=== PATIENT | male | born 1995 ===

== ENCOUNTER 2020-03-22 20:15 | Inpatient (IN) | payer MEDICAID, SELFPAY ==
[2020-03-22 20:16] VITALS: BP 157/91; PULSE 64; RESP 16; TEMP 36.4; O2SAT 98; BMI 40.6
--- NOTE | 2020-03-22 20:22 | ED_ITS ---
HPI - Psych General: Chief Complaint: Psychiatric Symptoms Stated Complaint: Psych Transfer Time Seen by Provider: 03/22/20 20:17 Source: patient and EMS Mode of arrival: EMS Limitations: altered mental status History of Present Illness: HPI Narrative: 24-year-old male who is here from outside facility as a direct admit to the psychiatric unit for suicidal ideations. Patient here seems to be slightly catatonic but will answer some questions and states that he wants to kill himself. He has had no fever or cough. Patient's lab work from outside facility are normal. He has had no known coronavirus contact. Associated symptoms: Reports depression Review of Systems Const: Denies: fever(s), chills, body aches or change in appetite Eyes: Denies: blurry vision or eye discomfort ENMT: Denies: throat pain or dental pain Card: Denies: chest pain Resp: Denies: dyspnea GI: Denies: abdominal pain, nausea, vomiting or diarrhea : Denies: dysuria Musc: Denies: neck pain or back pain Skin/Breast: Denies: rash Neuro: Denies: headache(s) Psych: Reports: depression Crow/Lymph: Denies: easy bruising All/Imm: Denies: urticaria Physical Exam Const: COMMON NORMALS: no acute distress, patient oriented x3 and healthy appearing HENMT: COMMON NORMALS: normocephalic and atraumatic HEAD & SCALP: normocephalic and atraumatic Eye: COMMON NORMALS: Equal, round and reactive pupils present and EOMs intact bilaterally PUPIL: Yes Equal, round and reactive pupils present Neck/C-Spine: COMMON NORMALS: full ROM and supple Chest: COMMONS NORMALS: normal inspection of the chest and normal palpation of entire chest wall Resp: COMMON NORMALS: normal respiratory effort, No retractions, No use of accessory muscles and clear to auscultation bilaterally AUSCULTATION: clear to auscultation bilaterally Cardio: COMMON NORMALS: regular rate, regular rhythm and No murmurs present (Cardio) RATE: regular rate RHYTHM: regular rhythm GI: COMMON NORMALS: Normal to inspection, nondistended, normoactive bowel sounds present, Soft to palpation, non-tender and no masses PALPATION: Yes Soft to palpation Extremity: COMMON NORMALS: normal to inspection and full ROM Neuro: COMMON NORMALS: patient oriented x3, moves all extremities and no focal motor deficits Psych: MOOD & AFFECT: Yes depressed mood THOUGHT CONTENT: Yes Suicidality present Skin: COMMON NORMALS: no rashes or lesions noted and no wounds GENERAL SKIN EXAM: no rashes or lesions noted MDM - Psych MDM Narrative: Medical decision making narrative: Patient presents for suicidal ideation and is a direct admit. Patient has no symptoms of coronavirus. Will admit to the psychiatric unit. Patient's vitals here are stable I did look over paperwork from outside facility and lab work is all normal as well. Discharge Plan Discharge Patient Disposition: Admitted As Inpatient Clinical Impression: Suicidal ideation Condition: Stable Coding Level of Care Code ED Senior Cyber Intelligence Analyst for Dudley Shah
[2020-03-22 20:59] VITALS: BP 135/85; PULSE 86; RESP 16; TEMP 36.4; O2SAT 99
[2020-03-22] MEDS: hyDROXYzine 25 mg Capsule 50 MG PO (21:50)
[2020-03-22] MEDS: trazodone 50 mg Tablet PO (21:50)
[2020-03-22 22:00] VITALS: BP 135/85; PULSE 86; RESP 16; TEMP 36.4; O2SAT 99
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
--- NOTE | 2020-03-23 04:32 | PC.NURSE ---
96 hour hold will need notarized tomorrow 03/23/20.
[2020-03-23 06:00] VITALS: BP 127/78; PULSE 53; RESP 17; TEMP 36.9; O2SAT 97
[2020-03-23] MEDS: haloperidol 5 mg Tablet PO ×2 (09:02→18:08)
[2020-03-23] MEDS: hyDROXYzine 25 mg Capsule 50 MG PO ×2 (09:02→17:57)
[2020-03-23] MEDS: cloZAPine 100 mg Tablet PO (09:02)
[2020-03-23] MEDS: lisinopril 10 mg Tablet PO (09:02)
[2020-03-23] MEDS: benztropine 1 mg Tablet PO ×2 (09:02→17:56)
[2020-03-23] MEDS: topiramate 100 mg Tablet PO (09:02)
[2020-03-23] MEDS: docusate sodium 100 mg Capsule PO ×2 (09:03→17:57)
--- NOTE | 2020-03-23 10:56 | P.HP_ITS ---
Providers/Chief Complaint Admitting Physician: Stephen Ulloa MD Chief Complaint: Psych Transfer HPI NPU History of Present Illness Just send me home. Cachorro Guerrero is a 24 year old male who was transferred on a direct admit from [facility] in [place]. Records indicate that he presented to the emergency room nearly 3 days ago having cut himself on the left forearm. The only information we have at this time is information provided by the hospital. The patient is providing no information this will be described in his mental status exam below. Apparently, he allegedly has a history of schizophrenia and bipolar disorder. He is living in a residential home. He has a history of hearing voices. The injury apparently was superficial. He was referred to psychiatry on the basis of an affidavit filed by Ana Maria Pritchett stating that the patient was having auditory hallucinations telling him to harm himself. The respondent appears to lack insight and judgment and is a danger to himself and potentially others. The respondent's behavior is unpredictable and cannot be managed at a lower level of care at this time. Medical assessment describes him as largely medically stable with a notable notable abnormality of having a urine drug screen positive for amphetamines. The patient presents today in an obtunded state. This is coincident with a medication list that is quite confus ing and overwhelming. We have no active medication list. But we have is a list of prescriptions that have been filled over the past year with no indication as to what is currently active. According to the list, he is to be on 3 different antipsychotic medications and 2 different antidepressants as well as 2 different benzodiazepines. Depending on how medications were reinstated and the accuracy of the list, it would explain his obtunded state at the time of the interview. It is noted that on the physical exam in the emergency room, he is described as alert and oriented appropriate and interactive. Past psychiatric history: Unknown Social history: Patient allegedly is in living in a nursing home. It is unclear whether he has a guardian. Medical history:In the emergency room he was given diagnoses of acute psychosis and intentional self-harm. He has no known drug allergies. He carries diagnoses of hypertension, morbid obesity, and tobacco use. Laboratories are unremarkable. Vital signs are unremarkable. Meds NPU Home Medications Medication Instructions Recorded Confirmed Last Taken Type olanzapine 10 mg PO DAILY 03/22/20 03/22/20 Unknown History Mental Status Exam MSE Comments: The patient is a large male appearing approximately his stated age. He enters the room and sits in the chair in a heavy manner. His eyes are limited and he is barely able to stay awake. He provides the chief complaint above but otherwise is able to provide no other information. After sitting in the chair for approximately 2 minutes, he simply gets up and walks out of the room goes back to his room and lays in bed. He is in no physical distress. He is in no emotional distress. His gait is waddling. There is no attention to internal stimuli. Vitals/I&O/Wt Last Vital Signs Temp 98.5 F 03/23/20 06:00 Pulse 53 L 03/23/20 06:00 Resp 17 03/23/20 06:00 BP 127/78 03/23/20 06:00 Pulse Ox 97 03/23/20 06:00 Weight last 48 hrs Weight 136.078 kg A&P Additional A&P Information Diagnoses Schizophrenia?chronic, undifferentiated Assessment: At this point the only thing that we can do is try and make some sense out of his medications as clearly he has being sedated from what ever he has been given over the past 2 days. Due to the psychiatric conditions and treatment listed in the Assessment and Plan - the patient requires continued hospitalization. Will provide a safe and therapeutic environment for patient.. Will continue inpatient treatment to allow for medication adjustment and monitoring. Will continue q15 min safety checks. Haldol Decanoate 100 mg every 4 weeks will be continued as soon as we can discover when his last injection was provided. Continue lisinopril 10 mg daily, hydroxyzine 50 mg twice daily, prazosin 2 mg at bedtime, trazodone 150 mg as needed. We will then use as needed medications to treat symptomatically. Monitor patient's mood, sleep, appetite, and behavior closely. Encourage patient to participate in individual and group therapeutic sessions on the perez. Estimated length of stay 5 days The expected benefits and potential side effects of patient's psychiatric medications were discussed with the patient. The patient understands and consents to treatment. CRITERIA FOR DISCHARGE: stable on medications and no longer an imminent threat to self or others Attestations NPU Medical Necessity Statement*: Patient will remain in the hospital another 4-5 nights until medication regimen can the establish and stabilize. Coding Level of Care Code Acute Armored Car Guard And Driver for Dudley Shah
[2020-03-23 13:36] VITALS: BP 109/69; PULSE 80; RESP 18; TEMP 36.8
[2020-03-23] MEDS: LORazepam 1 mg Tablet PO (18:08)
--- NOTE | 2020-03-23 18:08 | PC.NURSE ---
PATIENT PUSHING ON DOOR TO THE WAITING AREA, STATING I HAVE TO GET OUT OF HERE, PEOPLE ARE TRYING TO KILL ME. REASSURED PATIENT THAT HE WAS SAFE AND REDIRECTED PATIENT TO DAY ROOM. HALDOL 5MG AND ATIVAN 1MG ADMINISTERED PO. WILL MONITOR FOR DRUG EFFECTIVENESS.
--- NOTE | 2020-03-23 18:58 | PC.NURSE ---
PATIENT RESTING QUIETLY WITH EYES CLOSED. NO DISTRESS NOTED. WILL CONT TO MONITOR, SUPPORT AND REDIRECT NEEDED
[2020-03-23 22:00] VITALS: RESP 17
[2020-03-23] MEDS: divalproex ER 500 mg Tablet (24H) 1000 MG PO (22:05)
[2020-03-23] MEDS: prazosin 1 mg Capsule 2 MG PO (22:05)
[2020-03-23] MEDS: trazodone 100 mg Tablet PO (22:05)
[2020-03-23] MEDS: OLANZapine 10 mg TABLET 15 MG PO (22:06)
[2020-03-24 06:00] VITALS: BP 95/57; PULSE 92; RESP 15; TEMP 36.6; O2SAT 95
--- NOTE | 2020-03-24 06:35 | PC.NURSE ---
Patient to sedated.
[2020-03-24] MEDS: benztropine 1 mg Tablet PO ×2 (08:23→17:27)
[2020-03-24] MEDS: hyDROXYzine 25 mg Capsule 50 MG PO ×2 (08:23→17:27)
[2020-03-24] MEDS: docusate sodium 100 mg Capsule PO ×2 (08:23→17:27)
[2020-03-24] MEDS: lisinopril 10 mg Tablet PO (08:23)
[2020-03-24] MEDS: fluoxetine 20 mg Capsule PO (08:23)
[2020-03-24 13:13] VITALS: BP 92/57; PULSE 54; RESP 14; TEMP 36.7; O2SAT 95
[2020-03-24] MEDS: haloperidol 5 mg Tablet PO (16:04)
--- NOTE | 2020-03-24 16:04 | PC.NURSE ---
PRN Haldol 5mg PO Haldol given. Patient sitting in his shower, screaming at the voices to shut the hell up . Patient talking to himself and refusing to leave shower. Patient stated I already have five people in my head and there's no room for more . Patient cussing and screaming. This nurse attempt to calm patient and see what is going on. Patient stated the meds don't work. Patient did agree however, to take Haldol and see if that helped with the acute psychosis. Patient stayed in shower floor for about 5 minutes after Haldol given and then patient got up and continued to walk the halls.
--- NOTE | 2020-03-24 16:47 | PC.NURSE ---
STANDING ON TABLE YUNI Washington performing [id number] check when going to men's dayroom. This nurse heard Padmini cordoba for help in the dayroom. This nurse and JW Valencia came into dayroom and patient was standing on top of one of the tables and refusing to come down. Patient stated this is my mormonism . Patient instructed to come down due to safety measures. Patient finally decided to come down from table after persuasion by nursing staff. No injuries obtained by patient or staff. YUNI Washington stayed with patient for a while after that to be sure of safety. Physician notified.
[2020-03-24] MEDS: LORazepam 1 mg Tablet PO (18:09)
[2020-03-24] MEDS: acetaminophen 325 mg Tablet 650 MG PO (18:09)
--- NOTE | 2020-03-24 18:09 | PM.NPN ---
Subjective NPU Subjective: Interval history: The patient has acted out bizarre ideation, endangering himself by banging his head against the wall. He can talk to me coherently but he says the voices bother him a great deal. He says that olanzapine has been helpful with these voices. He has been on Geodon and Latuda as well as others, no doubt, and he says they haven't helped. He is currently at 15 mg Perdiem of olanzapine but I'm titrating him to the max at 20 mg Perdiem. Medications: Reviewed: Yes Medication Review Details: Current Medications Acetaminophen (Tylenol) 650 mg PO Q4H PRN PRN Reason: MILD PAIN Last Admin: 03/24/20 18:09 Dose: 650 mg Documented by: Benztropine Mesylate (Cogentin) 1 mg PO BID PRN PRN Reason: Mild Extrapyramidal symptoms Benztropine Mesylate (Cogentin) 1 mg PO BID [facility] Last Admin: 03/24/20 17:27 Dose: 1 mg Documented by: Camphor/Menthol/Phenol (Blistex) 1 applic TOPICAL Q1H PRN PRN Reason: DRYNESS Diphenhydramine HCl (Benadryl) 50 mg IM ONCE PRN PRN Reason: Severe Extrapyramidal Symptoms Diphenhydramine HCl (Benadryl) 25 mg PO Q6H PRN PRN Reason: ITCHING Divalproex Sodium (Depakote Er) 1,000 mg PO BEDTIME [facility] Last Admin: 03/23/20 22:05 Dose: 1,000 mg Documented by: Docusate Sodium (Colace) 100 mg PO BID [facility] Last Admin: 03/24/20 17:27 Dose: 100 mg Documented by: Fluoxetine HCl (Prozac) 20 mg PO DAILY [facility] Last Admin: 03/24/20 08:23 Dose: 20 mg Documented by: Haloperidol (Haldol) 5 mg PO Q4H PRN PRN Reason: AGITATION Last Admin: 03/24/20 16:04 Dose: 5 mg Documented by: Haloperidol Lactate (Haldol Inj) 5 mg IM Q4H PRN PRN Reason: Severe Aggression Hydroxyzine Pamoate (Vistaril) 50 mg PO Q6H PRN PRN Reason: ANXIETY Last Admin: 10/02/20 21:50 Dose: 50 mg Documented by: Hydroxyzine Pamoate (Vistaril) 50 mg PO BID [facility] Last Admin: 03/24/20 17:27 Dose: 50 mg Documented by: Lisinopril (Prinivil) 10 mg PO DAILY [facility] Last Admin: 03/24/20 08:23 Dose: 10 mg Documented by: Loperamide HCl (Imodium Capsule) 2 mg PO Q6H PRN PRN Reason: DIARRHEA Lorazepam (Ativan) 2 mg IM Q4H PRN PRN Reason: Severe Aggression Lorazepam (Ativan) 1 mg PO Q6H PRN PRN Reason: ANXIETY Last Admin: 03/24/20 18:09 Dose: 1 mg Documented by: Nicotine (Nicoderm 21 Mg Patch) 1 patch TRANSDERMA DAILY PRN PRN Reason: NICOTINE WITHDRAWAL Nicotine Polacrilex (Nicorette) 2 mg BUCCAL Q2H PRN PRN Reason: NICOTINE WITHDRAWAL Olanzapine (Zyprexa) 20 mg PO BEDTIME [facility] Ondansetron HCl (Zofran) 4 mg PO Q6H PRN PRN Reason: NAUSEA AND VOMITING Prazosin HCl (Minipress) 2 mg PO BEDTIME [facility] Last Admin: 03/23/20 22:05 Dose: 2 mg Documented by: Trazodone HCl (Desyrel) 100 mg PO BEDTIME [facility] Last Admin: 03/23/20 22:05 Dose: 100 mg Documented by: Mental Status Exam MSE Comments: The patient is lying calmly now in his bed. He is very anxious and holding an ice bag to his forehead. He understands that his head-banging may damage his brain. He says he wants to go to a long-term facility. Affect is blunt. Thought processes are limited right now but do not seem to be disorganized, blocked or racing. Speech is very soft but free of dysarthria, aprosody or pressure. Cognitive functions are probably subnormal. He denies suicidal or homicidal ideation, plan or intent. Insight and judgment are definitely impaired. 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 He is presently at 15 mg olanzapine daily. I'm titrating it to the max (20 mg by mouth daily). Status: Acute Attestations NPU Medical Necessity Statement*: I anticipate 5-7 midnights additional hospital stay. Time Spent in Patient Care: Greater than 35 minutes (>than 50% of time spent in counselling and/or direct pt care on unit). 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
--- NOTE | 2020-03-24 18:32 | PC.NURSE ---
PRN ATIVAN AND TYLENOL, SELF HARM Patient began slamming his head against wall near nurse's station. This nurse and YUNI Washington, as well as security went to stop patient and assess him. Guided patient back to his room to sit down. This nurse assessed for injuries. Patient was bleeding from forehead, small knot noted, red in color. Patient stated it was not hurting. Patient stated he was doing this to try to get rid of the voices. This nurse asked if the next time the voices got too overwhelming that he would come to this nurse and ask for help. Reinforcement needed. Tylenol given to prevent/reduce swelling. Ativan given for agitation and aggressive behavior to himself. Ice pack given for patient's head. Physician made aware and came to patient's room to assess him further. Medication adjustments made by physician. One-to-one sitter order received and begun.
[2020-03-24] MEDS: prazosin 1 mg Capsule 2 MG PO (20:30)
[2020-03-24] MEDS: divalproex ER 500 mg Tablet (24H) 1000 MG PO (20:30)
[2020-03-24] MEDS: OLANZapine 10 mg TABLET 20 MG PO (20:30)
[2020-03-24] MEDS: trazodone 100 mg Tablet PO (20:31)
[2020-03-24 21:13] VITALS: BP 99/60; PULSE 49; RESP 16; TEMP 36.7; O2SAT 97
[2020-03-25 06:00] VITALS: BP 96/61; PULSE 44; RESP 15; TEMP 36.5; O2SAT 95
[2020-03-25] MEDS: lisinopril 10 mg Tablet PO (11:06)
[2020-03-25] MEDS: hyDROXYzine 25 mg Capsule 50 MG PO ×2 (11:07→17:11)
[2020-03-25] MEDS: fluoxetine 20 mg Capsule PO (11:07)
[2020-03-25] MEDS: docusate sodium 100 mg Capsule PO ×2 (11:07→17:11)
[2020-03-25] MEDS: benztropine 1 mg Tablet PO ×2 (11:07→17:11)
[2020-03-25] MEDS: haloperidol 5 mg Tablet PO ×2 (11:56→17:11)
[2020-03-25] MEDS: LORazepam 1 mg Tablet PO (13:25)
[2020-03-25] MEDS: acetaminophen 325 mg Tablet 650 MG PO (13:25)
--- NOTE | 2020-03-25 13:46 | PC.NURSE ---
SELF HARM AND REFUSAL OF MEDS Patient beating his head against wall near nurse's station again today. Patient instructed to stop behavior and that this behavior is unsafe and not acceptable. Patient walked back to his room and assessed for injuries. Patient's forehead has two open cuts that are bloody and the spot is swelled and very red in color. Patient denies pain and denies need for anything. Patient informed the swelling will get worse and it will become sore. Patient given Haldol couple hours ago. Patient refusing to take Tylenol for head and Ativan for anxiety. Education provided on the need for these medications and that he can not harm himself or others. Reinforcement needed and will be done. Physician aware. One-to-one sitter order placed again. supervisor electronics processing aware and called for sitter. YUNI Washington will be sitting 1:1 until sitter arrives.
[2020-03-25 14:00] VITALS: BP 101/64; PULSE 51; RESP 18; TEMP 36.9; O2SAT 97
--- NOTE | 2020-03-25 15:26 | PM.NPN ---
Subjective NPU Subjective: Interval history: The patient now is at olanzapine 10 mg p.o. twice daily and has, in the last 2 days, received an injection of 5 mg Haldol IM each day. I have reviewed the [employer] online Library and there is a large amount of [employer] literature related to auditory hallucinations. They use combined antipsychotics such as Haldol plus olanzapine, taken with tiapride, which is not available in the [place] that I know of. I consulted with the hospital pharmacist to get his reaction to combining Haldol with olanzapine, titrating the former to the max divided doses. He says the maximum doses on each of these is FDA approved and he sees no overriding objection. I pointed out that this man is a big shanice who really hammers his head when he tries to get voices out of his head. I truly believe he could hurt himself significantly and I hope to avoid this. He agreed with the relative risk assessment. Medications: Reviewed: Yes Medication Review Details: Current Medications Acetaminophen (Tylenol) 650 mg PO Q4H PRN PRN Reason: MILD PAIN Last Admin: 03/24/20 18:09 Dose: 650 mg Documented by: Benztropine Mesylate (Cogentin) 1 mg PO BID PRN PRN Reason: Mild Extrapyramidal symptoms Benztropine Mesylate (Cogentin) 1 mg PO BID [facility] Last Admin: 03/25/20 11:07 Dose: 1 mg Documented by: Camphor/Menthol/Phenol (Blistex) 1 applic TOPICAL Q1H PRN PRN Reason: DRYNESS Diphenhydramine HCl (Benadryl) 50 mg IM ONCE PRN PRN Reason: Severe Extrapyramidal Symptoms Diphenhydramine HCl (Benadryl) 25 mg PO Q6H PRN PRN Reason: ITCHING Divalproex Sodium (Depakote Er) 1,000 mg PO BEDTIME [facility] Last Admin: 03/24/20 20:30 Dose: 1,000 mg Documented by: Docusate Sodium (Colace) 100 mg PO BID [facility] Last Admin: 03/25/20 11:07 Dose: 100 mg Documented by: Fluoxetine HCl (Prozac) 20 mg PO DAILY [facility] Last Admin: 03/25/20 11:07 Dose: 20 mg Documented by: Haloperidol (Haldol) 5 mg PO Q4H PRN PRN Reason: AGITATION Last Admin: 03/25/20 11:56 Dose: 5 mg Documented by: Haloperidol (Haldol) 10 mg PO DAILY [facility] Haloperidol Lactate (Haldol Inj) 5 mg IM Q4H PRN PRN Reason: Severe Aggression Hydroxyzine Pamoate (Vistaril) 50 mg PO Q6H PRN PRN Reason: ANXIETY Last Admin: 03/22/20 21:50 Dose: 50 mg Documented by: Hydroxyzine Pamoate (Vistaril) 50 mg PO BID [facility] Last Admin: 03/25/20 11:07 Dose: 50 mg Documented by: Lisinopril (Prinivil) 10 mg PO DAILY [facility] Last Admin: 03/25/20 11:06 Dose: 10 mg Documented by: Loperamide HCl (Imodium Capsule) 2 mg PO Q6H PRN PRN Reason: DIARRHEA Lorazepam (Ativan) 2 mg IM Q4H PRN PRN Reason: Severe Aggression Lorazepam (Ativan) 1 mg PO Q6H PRN PRN Reason: ANXIETY Last Admin: 03/24/20 18:09 Dose: 1 mg Documented by: Nicotine (Nicoderm 21 Mg Patch) 1 patch TRANSDERMA DAILY PRN PRN Reason: NICOTINE WITHDRAWAL Nicotine Polacrilex (Nicorette) 2 mg BUCCAL Q2H PRN PRN Reason: NICOTINE WITHDRAWAL Olanzapine (Zyprexa) 10 mg PO BID [facility] Ondansetron HCl (Zofran) 4 mg PO Q6H PRN PRN Reason: NAUSEA AND VOMITING Prazosin HCl (Minipress) 2 mg PO BEDTIME [facility] Last Admin: 03/24/20 20:30 Dose: 2 mg Documented by: Trazodone HCl (Desyrel) 100 mg PO BEDTIME [facility] Last Admin: 03/24/20 20:31 Dose: 100 mg Documented by: Mental Status Exam MSE Comments: The patient is lying calmly now in his bed. He is very anxious and. He understands that his head-banging may damage his brain. He says he wants to go to a long-term facility. Affect is blunt. Thought processes are limited right now but do not seem to be disorganized, blocked or racing. Speech is very soft but free of dysarthria, aprosody or pressure. Cognitive functions are probably subnormal. He denies suicidal or homicidal ideation, plan or intent. Insight and judgment are definitely impaired. He suffers greatly. 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 Time Spent in Patient Care: Greater than 35 minutes (>than 50% of time spent in counselling and/or direct pt care on unit). 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
[2020-03-25] MEDS: OLANZapine 10 mg TABLET PO (17:11)
[2020-03-25] MEDS: prazosin 1 mg Capsule 2 MG PO (19:18)
[2020-03-25] MEDS: trazodone 100 mg Tablet PO (19:18)
[2020-03-25] MEDS: divalproex ER 500 mg Tablet (24H) 1000 MG PO (19:18)
[2020-03-25 19:44] VITALS: BP 135/60; PULSE 72; RESP 17; TEMP 36.9; O2SAT 96
[2020-03-26 05:58] VITALS: BP 99/64; PULSE 84; RESP 16; TEMP 36.8; O2SAT 96
[2020-03-26] MEDS: haloperidol 5 mg Tablet 10 MG PO (07:51)
[2020-03-26] MEDS: OLANZapine 10 mg TABLET PO ×2 (07:52→16:49)
[2020-03-26] MEDS: lisinopril 10 mg Tablet PO (07:52)
[2020-03-26] MEDS: benztropine 1 mg Tablet PO ×2 (07:52→16:49)
[2020-03-26] MEDS: docusate sodium 100 mg Capsule PO ×2 (07:52→16:49)
[2020-03-26] MEDS: fluoxetine 20 mg Capsule PO (07:53)
[2020-03-26] MEDS: hyDROXYzine 25 mg Capsule 50 MG PO ×2 (07:53→16:49)
--- NOTE | 2020-03-26 11:33 | PM.NPN ---
Subjective NPU Subjective: Interval history: The patient, since augmentation of maximum (20 mg p.o. daily) olanzapine pharmacotherapy with haloperidol titration to 10 mg p.o. daily, has yielded an interesting response. The patient has fallen asleep and has been asleep for a LONG time. I have seen this before and it is a possible harbinger of improvement. The Soviets knew this decades ago and would often put acutely psychotic patients to sleep. We will see what he looks like when he wakes up. Medications: Reviewed: Yes Medication Review Details: Current Medications Acetaminophen (Tylenol) 650 mg PO Q4H PRN PRN Reason: MILD PAIN Last Admin: 03/24/20 18:09 Dose: 650 mg Documented by: Benztropine Mesylate (Cogentin) 1 mg PO BID PRN PRN Reason: Mild Extrapyramidal symptoms Benztropine Mesylate (Cogentin) 1 mg PO BID [facility] Last Admin: 03/26/20 07:52 Dose: 1 mg Documented by: Camphor/Menthol/Phenol (Blistex) 1 applic TOPICAL Q1H PRN PRN Reason: DRYNESS Diphenhydramine HCl (Benadryl) 50 mg IM ONCE PRN PRN Reason: Severe Extrapyramidal Symptoms Diphenhydramine HCl (Benadryl) 25 mg PO Q6H PRN PRN Reason: ITCHING Divalproex Sodium (Depakote Er) 1,000 mg PO BEDTIME [facility] Last Admin: 03/25/20 19:18 Dose: 1,000 mg Documented by: Docusate Sodium (Colace) 100 mg PO BID [facility] Last Admin: 03/26/20 07:52 Dose: 100 mg Documented by: Fluoxetine HCl (Prozac) 20 mg PO DAILY [facility] Last Admin: 03/26/20 07:53 Dose: 20 mg Documented by: Haloperidol (Haldol) 5 mg PO Q4H PRN PRN Reason: AGITATION Last Admin: 03/25/20 11:56 Dose: 5 mg Documented by: Haloperidol (Haldol) 10 mg PO DAILY [facility] Last Admin: 03/26/20 07:51 Dose: 10 mg Documented by: Haloperidol Lactate (Haldol Inj) 5 mg IM Q4H PRN PRN Reason: Severe Aggression Hydroxyzine Pamoate (Vistaril) 50 mg PO Q6H PRN PRN Reason: ANXIETY Last Admin: 03/22/20 21:50 Dose: 50 mg Documented by: Hydroxyzine Pamoate (Vistaril) 50 mg PO BID [facility] Last Admin: 03/26/20 07:53 Dose: 50 mg Documented by: Lisinopril (Prinivil) 10 mg PO DAILY [facility] Last Admin: 03/26/20 07:52 Dose: 10 mg Documented by: Loperamide HCl (Imodium Capsule) 2 mg PO Q6H PRN PRN Reason: DIARRHEA Lorazepam (Ativan) 2 mg IM Q4H PRN PRN Reason: Severe Aggression Lorazepam (Ativan) 1 mg PO Q6H PRN PRN Reason: ANXIETY Last Admin: 03/24/20 18:09 Dose: 1 mg Documented by: Nicotine (Nicoderm 21 Mg Patch) 1 patch TRANSDERMA DAILY PRN PRN Reason: NICOTINE WITHDRAWAL Nicotine Polacrilex (Nicorette) 2 mg BUCCAL Q2H PRN PRN Reason: NICOTINE WITHDRAWAL Olanzapine (Zyprexa) 10 mg PO BID [facility] Last Admin: 03/26/20 07:52 Dose: 10 mg Documented by: Ondansetron HCl (Zofran) 4 mg PO Q6H PRN PRN Reason: NAUSEA AND VOMITING Prazosin HCl (Minipress) 2 mg PO BEDTIME [facility] Last Admin: 03/25/20 19:18 Dose: 2 mg Documented by: Trazodone HCl (Desyrel) 100 mg PO BEDTIME [facility] Last Admin: 03/25/20 19:18 Dose: 100 mg Documented by: Mental Status Exam MSE Comments: The patient is sleeping now. When he has been awake off and on there is been no head banging. A formal mental status is impractical at the moment but we will see what happens. 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 Status: Acute (2) Suicidal ideation: See above Status: Chronic (3) Substance abuse: We got a call from the facility whence the patient came, reporting the discovery of a spoon with a burnt substance in it under the patient's bed. The possibility is that he has been abusing meth, which may have contributed to his environmentally induced psychosis. We will have to further assess and possibly refer for outpatient recovery services. Status: Suspected Attestations NPU Medical Necessity Statement*: I anticipate 5-7 midnights additional stay. 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
--- NOTE | 2020-03-26 13:45 | NPU.GN ---
Cachorro and Crispin both came in later in the group session. Cachorro appeared very down and looked at his feet for the 5-7 minutes he was in attendance. When asked something that he's grateful for, he couldn't think of anything. However, he stated that he can always turn to his friends when he needs support.
[2020-03-26 14:00] VITALS: RESP 18; TEMP 36.8
--- NOTE | 2020-03-26 17:53 | PC.NURSE ---
Hitting wall on head Patient was hitting head on wall near nurses station, this nurse and Chelsea. Bhatt PROMOTIONS EXECUTIVE quickly went to patient, before staff were at his side he had already stopped hitting his head. This nurse asked patient why he was hitting his head on wall and he said he was trying to stop the voices in his head that were telling him to kill himself. Patient reopened small wound on medial forehead. CATRACHO Moreau cleansed and covered with a telfa. PRN Tylenol offered for discomfort. Patient refused. Patient is calm at this time.
--- NOTE | 2020-03-26 20:06 | PC.NURSE ---
Patient is in his bed resting calmly. He refused a snack and has not been out of bed except to use the bathroom. He is withdrawn but answers questions. He avoids eye contact and does not like to be touched.
[2020-03-26 22:00] VITALS: BP 114/71; PULSE 85; RESP 16; TEMP 36.7; O2SAT 93
[2020-03-26] MEDS: haloperidol 5 mg Tablet PO (22:00)
[2020-03-26] MEDS: prazosin 1 mg Capsule 2 MG PO (22:00)
[2020-03-26] MEDS: divalproex ER 500 mg Tablet (24H) 1000 MG PO (22:00)
[2020-03-26] MEDS: trazodone 100 mg Tablet PO (22:00)
[2020-03-27 05:47] VITALS: BP 105/68; PULSE 56; RESP 16; TEMP 36.7; O2SAT 96
--- NOTE | 2020-03-27 07:23 | PM.NPN ---
Subjective NPU Subjective: Interval history: The patient has been less agitated and banged his head only once and was easily redirected from that. Nonetheless, our intervention is inadequate and I have pushed harder, increasing the haloperidol to 5 mg p.o. 3 times daily. Medications: Medication Review Details: Current Medications Acetaminophen (Tylenol) 650 mg PO Q4H PRN PRN Reason: MILD PAIN Last Admin: 03/24/20 18:09 Dose: 650 mg Documented by: Benztropine Mesylate (Cogentin) 1 mg PO BID PRN PRN Reason: Mild Extrapyramidal symptoms Benztropine Mesylate (Cogentin) 1 mg PO BID [facility] Last Admin: 03/26/20 16:49 Dose: 1 mg Documented by: Camphor/Menthol/Phenol (Blistex) 1 applic TOPICAL Q1H PRN PRN Reason: DRYNESS Diphenhydramine HCl (Benadryl) 50 mg IM ONCE PRN PRN Reason: Severe Extrapyramidal Symptoms Diphenhydramine HCl (Benadryl) 25 mg PO Q6H PRN PRN Reason: ITCHING Divalproex Sodium (Depakote Er) 1,000 mg PO BEDTIME [facility] Last Admin: 03/26/20 22:00 Dose: 1,000 mg Documented by: Docusate Sodium (Colace) 100 mg PO BID [facility] Last Admin: 03/26/20 16:49 Dose: 100 mg Documented by: Fluoxetine HCl (Prozac) 20 mg PO DAILY [facility] Last Admin: 03/26/20 07:53 Dose: 20 mg Documented by: Haloperidol (Haldol) 5 mg PO Q4H PRN PRN Reason: AGITATION Last Admin: 03/25/20 11:56 Dose: 5 mg Documented by: Haloperidol (Haldol) 5 mg PO TID [facility] Last Admin: 03/26/20 22:00 Dose: 5 mg Documented by: Haloperidol Lactate (Haldol Inj) 5 mg IM Q4H PRN PRN Reason: Severe Aggression Hydroxyzine Pamoate (Vistaril) 50 mg PO Q6H PRN PRN Reason: ANXIETY Last Admin: 03/22/20 21:50 Dose: 50 mg Documented by: Hydroxyzine Pamoate (Vistaril) 50 mg PO BID [facility] Last Admin: 03/26/20 16:49 Dose: 50 mg Documented by: Lisinopril (Prinivil) 10 mg PO DAILY [facility] Last Admin: 03/26/20 07:52 Dose: 10 mg Documented by: Loperamide HCl (Imodium Capsule) 2 mg PO Q6H PRN PRN Reason: DIARRHEA Lorazepam (Ativan) 2 mg IM Q4H PRN PRN Reason: Severe Aggression Lorazepam (Ativan) 1 mg PO Q6H PRN PRN Reason: ANXIETY Stop: 04/01/20 23:59 Nicotine (Nicoderm 21 Mg Patch) 1 patch TRANSDERMA DAILY PRN PRN Reason: NICOTINE WITHDRAWAL Nicotine Polacrilex (Nicorette) 2 mg BUCCAL Q2H PRN PRN Reason: NICOTINE WITHDRAWAL Olanzapine (Zyprexa) 10 mg PO BID [facility] Last Admin: 03/26/20 16:49 Dose: 10 mg Documented by: Ondansetron HCl (Zofran) 4 mg PO Q6H PRN PRN Reason: NAUSEA AND VOMITING Prazosin HCl (Minipress) 2 mg PO BEDTIME [facility] Last Admin: 03/26/20 22:00 Dose: 2 mg Documented by: Trazodone HCl (Desyrel) 100 mg PO BEDTIME [facility] Last Admin: 03/26/20 22:00 Dose: 100 mg Documented by: Mental Status Exam MSE Comments: Today the patient is soft-spoken. He is not agitated. He is a very large young man who presents at his stated age. He is clean and well kempt. Mood is dysphoric and affect is flat. He complains of loud voices but now says he has no impulse to bang his head. I would not rely on that, as he said that yesterday and proceeded to bang his head. Thought processes are integrated and free of racing, blocking or looseness of association. He continues to complain of loud auditory hallucinations. There are, however, no hallucinations, delusions or visual hallucinations. There are no ideas of reference. Cognitive functions are limited and insight and judgment as well. He denies suicidal or homicidal ideation, plan or intent. 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 Status: Acute (2) Substance abuse: Rehab resources will ultimately be made available. Status: Suspected Attestations NPU Medical Necessity Statement*: I anticipate 5-7 midnights Time Spent in Patient Care: 16 - 35 minutes (>than 50% of time spent in counselling and/or direct pt care on unit). 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
[2020-03-27] MEDS: OLANZapine 10 mg TABLET PO ×2 (08:53→19:35)
[2020-03-27] MEDS: lisinopril 10 mg Tablet PO (08:53)
[2020-03-27] MEDS: benztropine 1 mg Tablet PO ×2 (08:53→20:35)
[2020-03-27] MEDS: haloperidol 5 mg Tablet PO ×3 (08:53→20:35)
[2020-03-27] MEDS: docusate sodium 100 mg Capsule PO ×2 (08:53→20:35)
[2020-03-27] MEDS: hyDROXYzine 25 mg Capsule 50 MG PO ×2 (08:54→19:34)
[2020-03-27] MEDS: fluoxetine 20 mg Capsule PO (08:54)
--- NOTE | 2020-03-27 12:58 | PC.SOCIAL ---
patient's mom called. Her name is Fadumo Guerrero. [phone]. She provided the following information. * patient has had 2 other RCF placements that did not work out. patient's current RCF is not working out. she mentioned that the current home has drug houses near by. * was at [facility] for 3 weeks before coming to this hospital. he had about a week between hospitalizations. *was at another hospital before that. He spent 2 weeks in the Emergency Room waiting to get into a hospital. *when he was first placed in a RCF his roommate killed himself. *mom is considering guardianship but was hopeful that the state would do it. *mom called back later saying that she will proceed with with looking into getting guardianship started.
--- NOTE | 2020-03-27 13:32 | NPU.GN ---
Cheli Layne Lisa, Kelly, Michael, and Mathew were not present at Group this afternoon.
[2020-03-27 14:00] VITALS: BP 105/68; PULSE 56; RESP 16; TEMP 36.7; O2SAT 96
[2020-03-27] MEDS: nicotine 2 mg Gum BUCCAL ×2 (16:22→18:43)
[2020-03-27] MEDS: divalproex ER 500 mg Tablet (24H) 1000 MG PO (20:35)
[2020-03-27] MEDS: prazosin 1 mg Capsule 2 MG PO (20:35)
[2020-03-27] MEDS: trazodone 100 mg Tablet PO (20:35)
[2020-03-27 20:39] VITALS: RESP 18
--- NOTE | 2020-03-27 20:39 | PC.NURSE ---
Patient refused vitals and asked staff to leave the room stating Now isnt a good time. Respirations were taken.
--- NOTE | 2020-03-27 23:14 | PC.NURSE ---
Addendum entered by Patricia Maldonado RN 03/28/20 04:50: Pt has slept well this evening with a decrease in anxiety Original Note: Pt has been agitated, yelling, throwing things in his room. He was shouting and cursing. Slammed his door and wanted to keep it closed. He refused medication to calm down. He paced the genao and mood began to escalate. donor relations officer Jonathan was called to the unit and patient did take medication after much discussion. Patient received all nightly medications and was given PRN visteril 50mg PO. Will continue to monitor patient
[2020-03-28 06:00] VITALS: BP 126/92; PULSE 68; RESP 17; TEMP 36.8; O2SAT 93
[2020-03-28] MEDS: lisinopril 10 mg Tablet PO (09:20)
[2020-03-28] MEDS: OLANZapine 10 mg TABLET PO ×2 (09:20→21:37)
[2020-03-28] MEDS: fluoxetine 20 mg Capsule PO (09:20)
[2020-03-28] MEDS: hyDROXYzine 25 mg Capsule 50 MG PO ×2 (09:20→21:33)
[2020-03-28] MEDS: benztropine 1 mg Tablet PO ×2 (09:20→21:34)
[2020-03-28] MEDS: docusate sodium 100 mg Capsule PO ×2 (09:20→21:33)
[2020-03-28] MEDS: haloperidol 5 mg Tablet PO ×3 (09:20→21:34)
[2020-03-28 14:00] VITALS: BP 125/82; PULSE 65; RESP 18; TEMP 37.1; O2SAT 95
--- NOTE | 2020-03-28 16:01 | PM.NPN ---
Subjective NPU Subjective: Interval history: Cachorro presents today reporting that he is doing better. He was really really hoping to get discharged today because his birthday is tomorrow. However we discussed the possibility of discharge tomorrow. That seems to be reasonable for him until he got news that he might not see his mom tomorrow. However we discussed the importance of him holding it together so that we can feel comfortable discharging him and he was able to collect himself. He denied any side effects of the medications. Mental Status Exam MSE Comments: This is an obese versus morbidly obese male with adequate dress, grooming and eye contact. No abnormal movements except for psychomotor retardation. Cooperative with exam in no acute distress. Speech was decreased rate and volume with some dysarthria. Mood described as ready to go, affect slightly irritated. Thought process linear. Thought content: Patient denied any suicidal or homicidal ideations, there were no delusions reported or noted, he denied any auditory or visual hallucinations. Attention and concentration were intact in memory appeared reliable but none were formally tested. He is alert and oriented x3. Insight and judgment are limited, and all trouble is fair. Intellectual ability is impaired. 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 1. Continue current medication. 2. Continue every 15 minute checks for safety. 3. Encourage individual, group and milieu therapy. 4. Work with social work team for tentative discharge tomorrow. Attestations NPU Medical Necessity Statement*: Patient hospitalization is medically necessary and the clinically appropriate intervention at this time. We will monitor medications make changes as indicated. Tentative plan for discharge tomorrow. 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
[2020-03-28] MEDS: divalproex ER 500 mg Tablet (24H) 1000 MG PO (21:33)
[2020-03-28] MEDS: prazosin 1 mg Capsule 2 MG PO (21:34)
[2020-03-28] MEDS: trazodone 100 mg Tablet PO (21:34)
[2020-03-28] MEDS: nicotine 2 mg Gum BUCCAL (21:34)
[2020-03-28] MEDS: acetaminophen 325 mg Tablet 650 MG PO (21:36)
[2020-03-28 22:00] VITALS: BP 116/75; PULSE 71; RESP 18; TEMP 36.6; O2SAT 95
--- NOTE | 2020-03-29 04:41 | P.DS_ITS ---
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 Cachorro Guerrero is a 24 year old male who was transferred on a direct admit from [facility] in [place]. Records indicate that he presented to the emergency room nearly 3 days ago having cut himself on the left forearm. The only information we have at this time is information provided by the hospital. The patient is providing no information this will be described in his mental status exam below. Apparently, he allegedly has a history of schizophrenia and bipolar disorder. He is living in a residential home. He has a history of hearing voices. The injury apparently was superficial. He was referred to psychiatry on the basis of an affidavit filed by Ana Maria Pritchett stating that the patient was having auditory hallucinations telling him to harm himself. The respondent appears to lack insight and judgment and is a danger to himself and potentially others. The respondent's behavior is unpredictable and cannot be managed at a lower level of care at this time. Medical assessment describes him as largely medically stable with a notable notable abnormality of having a urine drug screen positive for amphetamines. The patient presents today in an obtunded state. This is coincident with a medication list that is quite confusing and overwhelming. We have no active medication list. But we have is a list of prescriptions that have been filled over the past year with no indication as to what is currently active. According to the list, he is to be on 3 different antipsychotic medications and 2 different antidepressants as well as 2 different benzodiazepines. Depending on how medications were reinstated and the accuracy of the list, it would explain his obtunded state at the time of the interview. It is noted that on the physical exam in the emergency room, he is described as alert and oriented appropriate and interactive. Past psychiatric history: Unknown Social history: Patient allegedly is in living in a mcfp. It is unclear whether he has a guardian. Medical history:In the emergency room he was given diagnoses of acute psychosis and intentional self-harm. He has no known drug allergies. He carries diagnoses of hypertension, morbid obesity, and tobacco use. Laboratories are unremarkable. Vital signs are unremarkable. Hospital Course Hospital Course Day #2 the patient's voices drive him to harm self damaging behavior. His psychosis has heretofore not responded to pharmacotherapy. Day #3 the patient is still tortured by his voices and consultation has yielded more aggressive pharmacotherapy. We shall see. Day #4 the patient is quite somnolent on haloperidol 10 mg and olanzapine 20 mg p.o. daily. We may have to back off but right now he needs to rest his brain. Day #5 the patient is subdued and continues to complain of auditory hallucinations in the face of aggressive pharmacotherapy. He has, however, a large body mass and our dosing, even at the FDA maximum recommended doses, may be insufficient. Cachorro presented to an outside hospital with issues related to his mcfp and self-injurious behaviors with long-term diagnosis of intellectual disability and impulse control disorders. He was transferred to [facility] and evaluated prior to being admitted to the neuropsychiatric unit for definitive treatment of those issues. On the unit he slowly acclimated to the individual, group and milieu therapies provided. Medication changes are made as stated above. And he had a modest improvement and stabilized. Prior to transfer he had routine laboratory studies which were within normal limits except for few outliers. Additionally had a general medical evaluation which was also within normal limits and revealed no new acute processes outside of the cuts. Discharge Summary At the time of discharge, without pathology and psychosis. His mood and anxiety were better managed and he endorsed a plan to follow-up with the treatment team's recommendations. He was evaluated and deemed to be absent credible lethality and had achieved a maximum benefit from inpatient hospitalization, so he was discharged. Mental Status Exam MSE Comments: This is an obese versus morbidly obese male with adequate dress, grooming and eye contact. No abnormal movements except for psychomotor retardation. Cooperative with exam in no acute distress. Speech was decreased rate and volume with some dysarthria. Mood described as better, affect slightly irritated. Thought process linear. Thought content: Patient denied any s uicidal or homicidal ideations, there were no delusions reported or noted, he denied any auditory or visual hallucinations. Attention and concentration were intact in memory appeared reliable but none were formally tested. He is alert and oriented x3. Insight and judgment are limited, but improving, and impulse control is fair. Intellectual ability is impaired. Discharge Data Vitals: Last Vital Signs Temp 97.9 F 03/28/20 22:00 Pulse 71 03/28/20 22:00 Resp 18 03/28/20 22:00 BP 116/75 03/28/20 22:00 Pulse Ox 95 03/28/20 22:00 Discharge Plan Discharge Patient Disposition: Home Condition: Stable Prescriptions: New haloperidol 5 mg Tablet 5 mg PO TID 30 Days Qty: 90 RF: 1 prazosin 1 mg Capsule 2 mg PO BEDTIME 30 Days Qty: 60 RF: 1 olanzapine 10 mg Tablet 10 mg PO 00,2099 30 Days Qty: 60 RF: 1 trazodone 100 mg Tablet 100 mg PO BEDTIME 30 Days Qty: 30 RF: 1 lisinopril 10 mg Tablet 10 mg PO DAILY 30 Days Qty: 30 RF: 1 divalproex 500 mg Tablet Extended Release 24 Hr 1,000 mg PO BEDTIME 30 Days Qty: 60 RF: 1 benztropine 1 mg Tablet 1 mg PO 899,2099 30 Days Qty: 60 RF: 1 docusate sodium 100 mg Capsule 100 mg PO 899,2099 30 Days Qty: 60 RF: 1 fluoxetine 20 mg Capsule 20 mg PO DAILY 30 Days Qty: 30 RF: 1 hydroxyzine pamoate 25 mg Capsule 50 mg PO 899,2099 30 Days Qty: 120 RF: 1 Continued Haldol Decanoate 100 mg/mL Solution See Rx Instructions .ROUTE .COMPLEX RF: 0 Discontinued olanzapine 10 mg tablet,disintegrating 10 mg PO DAILY RF: 0 Discharge Orders: Discharge Order (Routine); Ordered 03/29/20 Ordered By: Jordan Spence Referrals: [facility] in [place] [Other] - 04/05/20 10:00 am (your appointment is with your nurse practioner, Sathish Coughlin. It is recommended that you get scheduled with a psychiatrist in the near future. At that time, it will need to be discussed on the possible need for guardianship and skilled level of care. It is also recommended that you continue working with a caser shoe parts. Cecy is currently your caser shoe parts. Be sure to meet with her as soon as possible and discuss your treatment plan. Do call [facility] and ask for her to schedule an appointment. ) Discharge Diet: Regular Discharge Activity: Resume usual activity Patient Instructions: Lisinopril (By mouth), Prazosin (By mouth), Fluoxetine (By mouth), Trazodone (By mouth), Laxative, Stool Softeners (By mouth), Hydroxyzine Pamoate (By mouth), Benztropine Mesylate (By mouth), Olanzapine (By mouth), Divalproex (By mouth), Haloperidol Decanoate (Injection), Haloperidol (By mouth) Discharge Date/Time: 03/29/20 16:22 Discharge Attestations NPU Time Spent in Discharge Care*: less than 30 min Specific Discharge Activities: Specific discharge activities: educating patient, discussing with case finisher/social workers/dc planners, documenting/other paperwork and evaluating patient/reviewing data Coding Level of Care Code Acute Streetcar Repairer Helper for Dudley Fwd Diagnoses Impulse control disorder in adult F63.9 Intermittent explosive disorder in adult F63.81 Intellectual disability F79 Substance abuse F19.10 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
[2020-03-29 06:00] VITALS: BP 113/56; PULSE 52; RESP 18; TEMP 36.7; O2SAT 94
[2020-03-29] MEDS: haloperidol 5 mg Tablet PO ×2 (08:49→14:06)
[2020-03-29] MEDS: OLANZapine 10 mg TABLET PO (08:49)
[2020-03-29] MEDS: benztropine 1 mg Tablet PO (08:49)
[2020-03-29] MEDS: docusate sodium 100 mg Capsule PO (08:49)
[2020-03-29] MEDS: fluoxetine 20 mg Capsule PO (08:50)
[2020-03-29] MEDS: hyDROXYzine 25 mg Capsule 50 MG PO (08:50)
[2020-03-29] MEDS: lisinopril 10 mg Tablet PO (08:50)
[2020-03-29 13:51] VITALS: BP 117/79; PULSE 68; RESP 18; TEMP 36.7; O2SAT 97
[2020-03-29 14:34] VITALS: BP 117/79; PULSE 68; RESP 18; TEMP 36.7; O2SAT 97
[2020-03-29 14:49] LABS: SARS Covid-2 Antigen Negative (Negative)
[2020-03-29] MEDS: nicotine 2 mg Gum BUCCAL (14:57)
--- NOTE | 2020-03-29 15:23 | PC.NURSE ---
discharge meds called into [facility] at this time.
== END 2020-03-29 16:22 | disposition home or self-care (01) | DRG 885 ==
LOC: ER 20:35 → NP 20:39
PROVIDERS: Admitting Provider Psychiatry & Neurology Psychiatry; Emergency Provider Emergency Medicine; Visit Provider Psychiatry & Neurology Psychiatry
DX: F28 Other psychotic disorder not due to a substance or known physiological condition (principal); R45.851 Suicidal ideations; F79 Unspecified intellectual disabilities; F63.81 Intermittent explosive disorder; F63.9 Impulse disorder, unspecified; Z91.5 Personal history of self-harm; I10 Essential (primary) hypertension; F20.9 Schizophrenia, unspecified
CPT/HCPCS: 12345; 87426; 99281